=== PATIENT | male | born 1990 | race Caucasian/White ===

== ENCOUNTER 2016-10-16 19:48 | Emergency (ER) | payer BC ==
--- NOTE | 2016-10-16 20:04 | EDM.PDOC ---
ED HPI GENERAL MEDICAL PROBLEM - General Chief Complaint: ENT Problem Stated Complaint: SOMETHING IN LEFT EYE Time Seen by Provider: 10/16/16 20:03 - History of Present Illness INITIAL COMMENTS - FREE TEXT/NARRATIVE: he was grinding; He felt foreign body to the left eye about 4.5 hours ago. Left Eye Pain Score (Numeric/FACES): 5 - Related Data Allergies Allergy/AdvReac Type Severity Reaction Status Date / Time No Known Allergies Allergy Verified 10/16/16 19:56 Home Meds: Home Meds . 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 Course - Vital Signs Last Recorded V/S: Last Vital Signs Temp 98.5 F 10/16/16 19:56 Pulse 86 10/16/16 19:56 Resp 18 10/16/16 19:56 BP 134/89 10/16/16 19:56 Pulse Ox 99 10/16/16 19:56 - Orders/Labs/Meds Meds: Medications Discontinued Medications Generic Name Dose Route Start Last Admin Trade Name Gerson PRN Reason Stop Dose Admin Proparacaine HCl 2 ml 10/16/16 20:05 10/16/16 20:09 Proparacaine 0.5% Ophth Soln EYELF 10/16/16 20:06 2 drop NOW STA Administration Departure - Departure Time of Disposition: 20:23 Disposition: Home, Self-Care 01 Condition: Good Clinical Impression: Corneal abrasion - Discharge Information Referrals: PCP,None [Primary Care Provider] - Forms: ED Department Discharge Additional Instructions: use erythromycin eye ointment to left eye bid for one week recheck if not better tomorrow ( he already has medicine at home)
[2016-10-16] MEDS ORDERED: Proparacaine 0.5% Ophth Soln 15 ML Bottle EYELF STA (20:05)
[2016-10-17 00:37] VITALS: BP 125/78
== END 2016-10-16 20:46 | disposition home or self-care (01) ==
LOC: MW.ED 19:48
DX: S05.02XA Injury of conjunctiva and corneal abrasion without foreign body, left eye, initial encounter (principal); X58.XXXA Exposure to other specified factors, initial encounter
CPT/HCPCS: 99282; 99283